=== PATIENT | female | born 1990 | race Caucasian/White ===

== ENCOUNTER 2020-08-24 20:10 | Emergency (ER) | payer MEDICAID ==
[~2020-08-24] VITALS: Ht 167.6 cm; Wt 104.3 kg
[2020-08-24 20:17] VITALS: BP_SYST 16
--- NOTE | 2020-08-24 20:32 | NUR ---
Pt ambulated to bed 4 for evaluation
--- NOTE | 2020-08-24 20:40 | NUR ---
pt a&o x4 c/o of injecting meth in right AC and missing her vein 2 days ago, immediately noticing her entire right arm swell. pt c/o of right AC swelling, tenderness, & redness. pt rates tenderness 3 out of 10. pt took alieve yesterday with little relief. pt has been applying warm compresses to arm. pt denies discharge from site.
--- NOTE | 2020-08-24 20:40 | NUR ---
ER Dr. Nieto at bedside examining patient.
[2020-08-24] MEDS ORDERED: KETOROLAC TROMETHAMINE 60 MG/2 ML VIAL IM ONE (20:45)
--- NOTE | 2020-08-24 20:52 | NUR ---
LAB AT BEDSIDE DRAWING BLOOD.
--- NOTE | 2020-08-24 20:58 | NUR ---
RADIOLOGY AT BEDSIDE FOR XRAY.
[2020-08-24 21:04] LABS: BASOPHILS # (AUTO) 0.1 K/uL (0.0-0.2); BASOPHILS % (AUTO) 0.7 % (0.0-2.0); EOSINOPHILS # (AUTO) 0.4 K/uL (0.0-0.4); EOSINOPHILS % (AUTO) 3.4 % (0.0-4.0); HEMATOCRIT 36.6 % (36-48); LYMPHOCYTES % (AUTO) 19.2 % (20.5-51.5); MEAN CORPUSCULAR HEMOGLOBIN 29 pg (27-31); MEAN CORPUSCULAR HGB CONC 33 % (32-36); MEAN CORPUSCULAR VOLUME 89 fL (79.0-98.0); MONOCYTES # (AUTO) 0.5 K/uL (0.0-1.0); MONOCYTES % (AUTO) 4.3 % (1.7-9.3); NEUTROPHILS # (AUTO) 7.7 K/uL (1.8-7.7); NEUTROPHILS % (AUTO) 72.4 % (40.0-70.0); PLATELET COUNT (AUTO) 339 K/uL (130-430); RED BLOOD CELL COUNT(AUTO) 4.11 MIL/uL (4.2-6.2); RED CELL DISTRIBUTION WIDTH 14.3 % (9.0-15.0); WHITE BLOOD COUNT (AUTO) 10.6 K/uL (4.8-10.8)
[2020-08-24 21:30] LABS: CALCIUM 8.4 mg/dL (8.4-11.0); CREATININE 1.07 mg/dL (0.55-1.30); POTASSIUM 3.6 mmol/L (3.5-5.1)
--- NOTE | 2020-08-24 21:51 | NUR ---
HCG QUANT (NEGATIVE) PRIOR TO ADMINISTRATION OF TORADOL.
[2020-08-24 22:22] VITALS: BP_SYST 133
--- NOTE | 2020-08-24 22:22 | NUR ---
Patient given written and verbal discharge instructions and verbalizes understanding. ER MD discussed with patient the results and treatment provided. Patient in stable condition. ID arm band removed. Rx of motrin and bactrim given. Patient educated on pain management and to follow up with PMD. Pain Scale 4/10. Opportunity for questions provided and answered. Medication side effect fact sheet provided.
== END 2020-08-24 22:22 | disposition home or self-care (01) ==
LOC: SED 20:10
DX: M79.601 Pain in right arm (principal); I10 Essential (primary) hypertension; E11.9 Type 2 diabetes mellitus without complications; F15.90 Other stimulant use, unspecified, uncomplicated
CPT/HCPCS: 36415; 73060; 73090; 80048; 82550; 84702; 85025; 96372; 99284; J1885

== ENCOUNTER 2020-08-28 16:25 | Emergency (ER) | payer SELFPAY ==
[~2020-08-28] VITALS: Ht 167.6 cm; Wt 104.3 kg
[2020-08-28 16:34] VITALS: BP_SYST 162
--- NOTE | 2020-08-28 16:50 | NUR ---
Patient to ER bed 04 to gown for evaluation. Side rails up.
--- NOTE | 2020-08-28 16:52 | NUR ---
Patient biba in the ED for a follow up on the right arm cellulitis for the last 4 days; progressively getting worse. Denied any chest pain or shortness of breath. Denied any fevers, chills, nausea or vomiting. Patient is alert and oriented x4, respirations even and unlabored, speaking in full sentences, and ambulating with a steady gait. VSS, pain level 10/10. Informed of the approximate wait time. Instructed to notify ED staff for any changes in condition or worsening of symptoms while waiting to be seen by an ED provider. Patient verbalized understanding.
--- NOTE | 2020-08-28 17:31 | NUR ---
ER Dr. Isbell at bedside examining patient.
[2020-08-28] MEDS ORDERED: cefTRIAXone 1 GM VIAL IM ONE (17:45)
--- NOTE | 2020-08-28 17:48 | NUR ---
Administered Rocephin IM as ordered by Dr. Isbell. Patient tolerated the medications well. See eMAR for details.
--- NOTE | 2020-08-28 17:54 | NUR ---
Administered Ibuprofen PO as ordered by Dr. Isbell. Patient tolerated the medications well. See eMAR for details.
[2020-08-28 17:55] VITALS: BP_SYST 162
--- NOTE | 2020-08-28 17:56 | NUR ---
Patient given written and verbal discharge instructions and verbalizes understanding. ER MD discussed with patient the results and treatment provided. Patient in stable condition. ID arm band removed. Rx of Augmentin given. Patient educated on pain management and to follow up with PMD. Pain Scale 0/10. Opportunity for questions provided and answered. Medication side effect fact sheet provided.
[2020-08-28] MEDS ORDERED: IBUPROFEN 600 MG TABLET PO ONE (18:00)
[2020-08-28] MEDS ORDERED: LIDOCAINE 1%, 20 ML MDV 20 ML ONE (18:04)
[2020-08-28] MEDS ORDERED: IBUPROFEN 600 MG TABLET ONE (18:15)
== END 2020-08-28 17:56 | disposition home or self-care (01) ==
LOC: SED 16:25
DX: L03.113 Cellulitis of right upper limb (principal); I10 Essential (primary) hypertension; E07.9 Disorder of thyroid, unspecified
CPT/HCPCS: 96372; 99283; J0696; J2001

== ENCOUNTER 2021-04-11 23:31 | Emergency (ER) | payer MEDICAID ==
[~2021-04-11] VITALS: Ht 165.1 cm; Wt 113.4 kg
[2021-04-11 23:40] VITALS: BP_SYST 159
[2021-04-12] MEDS ORDERED: KETOROLAC TROMETHAMINE 60 MG/2 ML VIAL IM ONE (00:15)
[2021-04-12 01:01] LABS: MEAN CORPUSCULAR HGB CONC 34 % (32-36); WHITE BLOOD COUNT (AUTO) 8.9 K/uL (4.8-10.8)
[2021-04-12 01:10] LABS: CALCIUM 8.4 mg/dL (8.4-11.0); CREATININE 1.02 mg/dL (0.55-1.30); POTASSIUM 3.6 mmol/L (3.5-5.1)
[2021-04-12 01:21] LABS: ALBUMIN 3.2 g/dL (3.4-4.8); TOTAL BILIRUBIN 0.5 mg/dL (0.0-1.0)
[2021-04-12 01:23] LABS: BASOPHILS # (AUTO) 0.1 K/uL (0.0-0.2); BASOPHILS % (AUTO) 1.2 % (0.0-2.0); EOSINOPHILS # (AUTO) 0.3 K/uL (0.0-0.4); EOSINOPHILS % (AUTO) 2.8 % (0.0-4.0); HEMATOCRIT 33.4 % (36-48); HEMOGLOBIN 11.3 g/dL (12.0-16.0); LYMPHOCYTES # (AUTO) 1.8 K/uL (1.0-5.5); LYMPHOCYTES % (AUTO) 20.5 % (20.5-51.5); MEAN CORPUSCULAR HEMOGLOBIN 30 pg (27-31); MEAN CORPUSCULAR VOLUME 89 fL (79.0-98.0); MONOCYTES # (AUTO) 0.4 K/uL (0.0-1.0); MONOCYTES % (AUTO) 4.1 % (1.7-9.3); NEUTROPHILS # (AUTO) 6.4 K/uL (1.8-7.7); NEUTROPHILS % (AUTO) 71.4 % (40.0-70.0); PLATELET COUNT (AUTO) 307 K/uL (130-430); RED BLOOD CELL COUNT(AUTO) 3.77 MIL/uL (4.2-6.2); RED CELL DISTRIBUTION WIDTH 13.8 % (9.0-15.0)
[2021-04-12] MEDS ORDERED: IBUP-1971 PO (01:38)
[2021-04-12] MEDS ORDERED: AMOX-426 PO (01:38)
[2021-04-12] MEDS ORDERED: AMOXICILLIN/CLAVULANATE POTASSIUM 875 MG TABLET ONE (01:42)
[2021-04-12] MEDS ORDERED: AMOXICILLIN/CLAVULANATE POTASSIUM 875 MG TABLET PO ONE (01:45)
[2021-04-12 01:50] VITALS: BP_SYST 159
== END 2021-04-12 01:50 | disposition home or self-care (01) ==
LOC: SED 23:31
DX: L03.114 Cellulitis of left upper limb (principal); F15.10 Other stimulant abuse, uncomplicated; F17.210 Nicotine dependence, cigarettes, uncomplicated; I10 Essential (primary) hypertension; F32.9 Major depressive disorder, single episode, unspecified; Z71.6 Tobacco abuse counseling
CPT/HCPCS: 36415; 73090; 73130; 80053; 81025; 83605; 84702; 85025; 93971; 96372; 99285; J1885